=== PATIENT | male | born 1955 | race Caucasian/White ===

== ENCOUNTER → 2024-03-30 | Outpatient (CLI) | payer OTHER | END | disposition home or self-care (01) | LOC: RESCLI 10:13 | PROVIDERS: ATTEND Internal Medicine | DX: E11.9 Type 2 diabetes mellitus without complications (principal); I10 Essential (primary) hypertension; J30.2 Other seasonal allergic rhinitis; E53.8 Deficiency of other specified B group vitamins; E78.5 Hyperlipidemia, unspecified; Z98.890 Other specified postprocedural states; Z88.0 Allergy status to penicillin; Z88.8 Allergy status to other drugs, medicaments and biological substances; Z90.49 Acquired absence of other specified parts of digestive tract; Z79.84 Long term (current) use of oral hypoglycemic drugs; Z79.899 Other long term (current) drug therapy ==